=== PATIENT | female | born 1940 | race Caucasian/White ===

== ENCOUNTER 2016-05-31 07:20 | Day surgery (SDC) | payer MEDICARE ==
[~2016-05-31] VITALS: Ht 175.3 cm; Wt 73.0 kg
[~2016-05-31 07:20] MED LIST: AMLO5TAB2 PO; ASPI81TA2 PO; CHOL200025 PO; FISH PO; FOL1 PO; HYDR25TA4 PO; LOSA100T29 PO; VITA-212 PO
[2016-05-31 07:41] VITALS: BP 102/70; PULSE 90; RESP 15; O2SAT 94
[2016-05-31] MEDS ORDERED: 0.9% Sodium Chloride 1,000 ML IV PRN (07:48)
[2016-05-31] MEDS ORDERED: Sodium Chloride LOK Flush 10 mL Syringe IV PRN (07:50)
[2016-05-31] MEDS ORDERED: fentaNYL-PF 50 mCg/mL 2 mL Inj IVPUSH PRN (07:50)
--- NOTE | 2016-05-31 08:26 | PCM.ENDCOL ---
Colonoscopy Date of Service: May 31, 2016 Physician Jose Parisi MD Pre Procedure Diagnosis: Screening personal history of colon polyp Post Procedure Dx & Findings: Polyp hemorrhoids and diverticula Procedure Colonoscopy PROCEDURE IN DETAIL: Prep adequate Withdrawal time 11 minutes After unremarkable rectal examination the Olympus video colonoscope was inserted patient's anal canal and was advanced to cecum. Landmarks were identified including the ileocecal valve and appendiceal orifice. Scope was withdrawn systematically. Visualized colonic mucosa showed healthy shiny mucosa with normal healthy-appearing vasculature. In the sigmoid colon there was a 1 mm polyp which was removed completely using cold forceps. In the sigmoid colon there were several medium size diverticuli. Patient also had isolated diverticuli although up to the ascending colon. In the rectum retroflexion was done which showed hemorrhoids. Anal canal was inspected carefully on the way out and hemorrhoids noted. Impression Polyp 1 status post complete removal Diverticuli Hemorrhoids Personal history of colon polyp Recommendation Repeat colonoscopy 5 years Diverticular diet Presedation Assessment Risks and Benefits Informed consent was obtained from the patient after all risks and benefits including but not limited to drug reaction, infection, pain, bleeding, perforation, as well as alternatives were discussed. Patient monitoring Continuous pulse oximetry, cardiac monitoring, blood pressure monitoring, IV access, and oxygen at 2L per nasal cannula. Periprocedural Fentanyl: Fentanyl 100mcg Incrementally Midazolam: Midazolam 4mg Incrementally Complications There were no periprocedural complications identified. Post Procedure Plan Post Procedure Recommendations 1. Restrict activities today. 2. Resume normal activities in the morning. 3. Resume medications. 4. Patient informed of normal post procedure side effects as bloating, drowsiness, blood streaking in the stool. 5. average risk CRCS. If colon polyps come back as: -Hyperplastic- can repeat colonoscopy in 10 years -Tubular adenoma- repeat colonoscopy in 5 years -Tubulovillous/villous adenoma- repeat colonoscopy in 3 years -If any dysplasia- return to clinic as soon as possible 6. Please don't hesitate to call me with any questions. Jose Parisi MD May 31, 2016 08:26
[2016-05-31 08:32] VITALS: BP 93/60; PULSE 70; RESP 16; O2SAT 93
[2016-05-31 08:42] VITALS: BP 90/59; PULSE 73; RESP 16; O2SAT 95
[2016-05-31 08:46] VITALS: BP 92/63; PULSE 78; RESP 16; O2SAT 96
--- NOTE | 2016-06-01 14:05 | PATH ---
SURGICAL PATHOLOGY Attending Physician:Jose Parisi M.D. CASE STATUS: Signed Out PATIENT NAME: NIECY HAWK PID: [id number] : 1940 DATE COLLECTED:05/31/2016 19:47 SPECIMEN: Colon, Biopsy CLINICAL HISTORY: 1). SIGMOID POLYP FINAL DIAGNOSIS: 1.SIGMOID POLYP: HYPERPLASTIC POLYP. ICD10 CODE K63.5 GROSS DESCRIPTION: The specimen is received in one formalin filled container labeled with the patient's name, sublabeled "sigmoid polyp" and consists of a 0.2 x 0.2 x 0.2 CM portion of tissue which is entirely submitted in one cassette. 05/31/2016 DAC MICRO DESCRIPTION: See diagnosis. ICD-9 CODES: CPT CODES: 1: 23432 Electronically Signed Out Namita Carrillo MD [facility], [place] [address] Technical component performed at [facility], [address] [place] [address] Ave[address], [place], [address]
== END 2016-05-31 23:59 | disposition home or self-care (01) ==
LOC: END 07:20
PROVIDERS: ATTEND Internal Medicine
DX: Z12.11 Encounter for screening for malignant neoplasm of colon (principal); K63.5 Polyp of colon; K57.30 Diverticulosis of large intestine without perforation or abscess without bleeding; K64.8 Other hemorrhoids; Z86.010 Personal history of colon polyps; I10 Essential (primary) hypertension; G43.909 Migraine, unspecified, not intractable, without status migrainosus; Z79.82 Long term (current) use of aspirin
CPT/HCPCS: 45380; 88305; 99153; G0500; J2250; J3010; J7030

== ENCOUNTER 2016-08-25 12:02 | Observation (INO) | payer MEDICARE ==
[2016-08-25] VITALS (8 sets, daily range): BP systolic 112–163; BP diastolic 72–91; PULSE 77–107; RESP 16–18; O2SAT 94–99
[~2016-08-25] VITALS: Ht 175.3 cm; Wt 77.3 kg
--- NOTE | 2016-08-25 12:14 | ED.REPORT ---
HPI-Stroke / CVA Aug 25, 2016 ED Provider: Dr. Martinez 75 y/o female on Aspirin with a hx of HTN and migraines presents to the ED complaining of sudden severe headache about 2 hours ago. Associated sx include weakness in left arm and leg that lasted a few minutes. She states she took two Aspirin prior to arrival for her headache. In the ED, her sx have resolved, except a mild headache. Nursing Notes Stated Complaint: SEVERE HEADACHE/LT SIDE WEAKNESS Chief Complaint: Neuro Symptoms/ Deficits Nursing Notes Reviewed: Yes Allergies: Coded Allergies: No Known Allergies (Verified Allergy, Unknown, 08/25/16) Scheduled Amlodipine (Amlodipine) 5 Mg Tablet 5 MG PO DAILY (Reported) Aspirin-Expunged Drug, Do Not Renew! (Aspirin-Expunged Drug, Do Not Renew!) 81 Mg Tab 81-162 MG PO DAILY (Reported) Cholecalciferol-Expunged Drug, Do Not Renew! (Vitamin D3-Expunged Drug, Do Not Renew!) 2,000 Unit Tablet 2,000 UNIT PO DAILY (Reported) Fish Oil-Expunged Drug, Do Not Renew! (Fish Oil-Expunged Drug, Do Not Renew!) Cap 1 CAP PO DAILY (Reported) Folic Acid-Expunged Drug, Do Not Renew! (Folic Acid-Expunged Drug, Do Not Renew! ) 1 Mg Tablet 1 MG PO DAILY (Reported) Hydrochlorothiazide (Hydrochlorothiazide) 25 Mg Tablet 25 MG PO DAILY Losartan Potassium (Losartan Potassium) 100 Mg Tablet 100 MG PO DAILY Vitamin B Complex (P-Clslxtf-Xtpzdxz B-12) 1 Each Tablet 1 EACH PO DAILY ( Reported) General Time Seen by Provider: 12:15 Chief Complaint Other (headache) Hx Obtained From: Patient Arrived By: Walk-in Time last known well 10:00 Sudden in Onset?: Yes Symptom Duration: 1 - 15 minutes Progression Since Onset: Resolved Location: : Head Quality: Painful Radiation: Does not radiate Severity: Current: Mild Severity: Maximum: Moderate Recent Healthcare: No recent doctor visit Similar Sx Previous: No Risk Factors NIH Stroke Scale Level of Consciousness: Alert and responsive (0) Ask Month & Age: Both questions right (0) Open/Close Eyes/Hand Shuttlecock Assembler: Performs both tasks (0) Horizontal EO Movements: None (0) Visual Chatman: No visual loss (0) Facial Palsy: Normal symmetry (0) Right Arm Motor Drift (10s): No drift 10 sec (0) Left Arm Motor Drift (10s): No drift 10 sec (0) Right Leg Motor Drift (5s): No drift 5 sec (0) Left Leg Motor Drift (5s): No drift 5 sec (0) Limb Ataxia FNF/Heel-Faulkner: No ataxia (0) Sensation (Arms/Legs/Face): No sensory loss (0) Language Aphasia: No aphasia, normal (0) Dysarthria: No dysarthria, normal (0) Extinction/Inattention: No exctinct/inattent (0) NIHSS Score: 0 Time NIHSS Performed: 12:26 Date NIHSS Performed: Aug 25, 2016 Past Medical History Past Medical History Hx of cervical cancer GERD Past Surgical History breast reduction partial hysterectomy right hip replacement Smoking History Never Smoker Social History Alcohol Use: Denies alcohol use Drug Use: Denies drug use Other Social History: Ambulatory Status Independent Review of Systems Neurologic: Reports: Headache, Weakness (left extremities (resolved)) Complete sys rev & neg: except as marked. Physical Exam Initial Vital Signs Vital Signs (First) Date Time Temp Pulse Resp B/P Pulse Ox O2 Delivery O2 Flow Rate FiO2 08/25/16 12:08 36.8 107 18 159/91 99 Room Air Initial VS: Reviewed Abdomen / GI: Soft, Non-tender Extremities: Vascular intact, Neuro intact, No swelling, No tenderness Skin: Warm, Dry, No cyanosis General/Constitutional: Awake, Alert, No acute distress, Cooperative Head / Eyes: Atraumatic, Normocephalic, PERRL, EOMI Neck: Atraumatic, Supple, Full range of motion Respiratory / Chest: Atraumatic, Breath sounds NL, Breath sounds = bilat, No respiratory distress, No rales, No rhonchi, No wheezing Cardiovascular: Heart rate NL, Regular rhythm, Heart sounds NL, No gallop, No murmurs, No rubs Neurologic: Oriented X3, Speech NL, No motor deficits, No sensory deficits, CN II - XII intact, Memory NL Interpretation & Diagnostics PROCEDURE: MRI BRAIN WITHOUT CONTRAST ([id number]) IMPRESSION: Small, sub-5 mm foci of acute ischemia involving the right cerebral hemisphere as detailed above. Right mastoid air cell fluid. Recommend clinical correlation to exclude mastoiditis. Bilateral scattered white matter signal changes, statistically representing chronic microvascular ischemic disease Dictated by: Harshal Peetr M.D. on 08/25/2016 at 15:22 Approved by: Harshal Peter M.D. on 08/25/2016 at 15:27 Lab Results Interpretation Result Diagram: 08/25/16 1232 08/25/16 1232 Test 08/25/16 12:32 08/25/16 12:33 08/25/16 12:42 08/25/16 13:31 White Blood Count 10.3th/mm3 (3.8-10.1) Red Blood Count 4.93mil/mm3 (3.90-5.20) Hemoglobin 14.9g/dL (12.0-15.6) Hematocrit 44.2% (35.0-46.0) Mean Corpuscular Volume 89.7fL (81-100) Mean Corpuscular Hemoglobin 30.2pg (27.0-35.0) Mean Corpuscular Hemoglobin Concent 33.7% (32.0-37.0) Red Cell Distribution Width 14.0% (12.3-15.4) Platelet Count 300bil/L (150-400) Neutrophils (%) (Auto) 71.8% (40-74) Lymphocytes (%) (Auto) 19.3% (14-46) Monocytes (%) (Auto) 7.3% (4-12) Eosinophils (%) (Auto) 1.0% (0-5) Basophils (%) (Auto) 0.2% (0-3) Prothrombin Time 9.6sec (8.1-12.5) Prothromb Time International Ratio 0.90ratio Activated Partial Thromboplast Time 23.8sec (22.8-33.0) Sodium Level 139mEq/L (134-144) Potassium Level 4.4mEq/L (3.5-5.2) Chloride Level 102mEq/L (97-108) Carbon Dioxide Level 19mmol/L (18-29) Blood Urea Nitrogen 17mg/dL (8-27) Creatinine 0.85mg/dL (0.57-1.00) Estimat Glomerular Filtration Rate 94mL/min (>59) Glucose Level 103mg/dL (60-99) Calcium Level 10.0mg/dL (8.5-10.1) Total Bilirubin 0.3mg/dL (0.0-1.2) Aspartate Amino Transf (AST/SGOT) 18U/L (0-50) Alanine Aminotransferase (ALT/SGPT) 18U/L (0-32) Alkaline Phosphatase 100U/L (25-165) Troponin T < 0.010ug/L (0.0-0.011) Total Protein 6.9g/dL (6.4-8.4) Albumin 4.2g/dL (3.4-5.0) Hold Sanchez Top Tube Received (Received) Triglycerides Level 241mg/dL (0-149) Cholesterol Level 285mg/dL (100-199) LDL Cholesterol, Calculated 162.800mg/dL (0-99) VLDL Cholesterol 48.200mg/dL HDL Cholesterol 74mg/dL (>39) Cholesterol/HDL Ratio 3.85 (0.0-4.4) Urine Color Straw (YELLOW) Urine Appearance Hazy (CLEAR,HAZY) Urine pH 6.0 (5.0-8.0) Urine Specific [place] 1.005 (1.003-1.035) Urine Protein Negativemg/dL (NEG,TRACE) Urine Glucose (UA) Negativemg/dL (NEGATIVE) Urine Ketones Negativemg/dL (NEGATIVE) Urine Occult Blood Negative (NEGATIVE) Urine Nitrite Negative (NEGATIVE) Urine Bilirubin Negative (NEGATIVE) Urine Urobilinogen Normalmg/dL (NORMAL) Urine Leukocyte Esterase Negative (NEGATIVE) Urine RBC 0-2/hpf (0-2) Urine WBC 0-5/hpf (0-5) Urine Epithelial Cells Occasional/hpf (NONE-MOD) Urine Crystals None seen (NONE SEEN) Urine Bacteria Few/hpf (NONE-FEW) Urine Hyaline Casts None/lpf (NONE) Urine Granular Casts None seen (NONE SEEN) Urine Waxy Casts None seen (NONE SEEN) Urine Red Blood Cell Casts None seen (NONE SEEN) Urine White Blood Cell Casts None seen (NONE SEEN) Urine Mucus None seen (None Seen) Urine Trichomonas None seen (NONE SEEN) Urine Yeast None (NONE SEEN) Urinalysis Comment None Urine Culture Reflexed Not indicated ECG Interpretation ECG Interpretation: Normal sinus rhtyhm. Rate 85. No STT changes No changes from previous on 05/28/15 Time: 12:55 Interpreted by: ED physician CT Head Interpretation IMPRESSION: No acute intracranial abnormality. Findings telephoned to Dr. Martinez in the emergency department 1228 hours 08/25/16 This study fulfills neurological imaging criteria for inclusion or exclusion of acute stroke therapies based on available published neurological guidelines. Dictated by: Harshal Peter M.D. on 08/25/2016 at 12:26 Approved by: Harshal Peter M.D. on 08/25/2016 at 12:29 Study: Head CT no contrast Interpretation / Wet Read by: Interpret - Radiologist Re-Eval/Medical Decision Med Decision/Clinical Course 35-year-old female history of hypertension presenting with headache and left upper extremity and left lower extremity weakness resolved prior to arrival. CT confirms a 5 mm acute ischemic stroke right frontal region. Her symptoms resolved. Code stroke was called initially and her symptoms resolved immediately prior to CT. There was no hemorrhage. Her workup was negative other than an MRI. Patient will be admitted for stroke workup. Neurologist was consulted who agreed with plan for admission and stroke workup. Patient took 324 mg of aspirin prior to arrival. Re-Evaluation/Progress #1: Time of Eval: 14:21 Patient Status: Condition resolved, Complete relief Re-Evaluation/Progress Note: Rechecked pt. Discussed lab results, imaging results, diagnosis and plan to discharge after an MRI. Pt understands and agrees with the plan. F/U instructions and RTER warning given. All questions addressed. Re-Evaluation/Progress #2: Time of Eval: 14:37 Re-Evaluation/Progress Note: Rechecked pt. Discussed MRI results, diagnosis and plan to admit. All questions answered. Consultation #1: Referral / Consult Name: Rob Oneill MD Consulted With: Neurology Call Returned at: 16:40 Navy Seal: Agrees with eval, Agrees with plan Note: Dr. Oneill agrees with admission for stroke workup Consultation #2: Referral / Consult Name: Cameron Goel DO Consulted With: Hospitalist Call Returned at: 17:44 Navy Seal: Will see patient, Agrees with eval, Agrees with plan, Accepts admit Counseled Regarding: Diagnosis, Lab results, Need for admission Patient Discharge & Departure Impression: Primary Impression: Stroke Disposition: ADMITTED TO HOSPITAL Discharge Condition All VS Reviewed: Yes Referrals: Yamel James DO (PCP) Crit Care Except Billable Proc Time Spent: 30-74 minutes (35 minutes) Services Performed: Patient management by me, Time spent at bedside, Reviewing test results, Reviewing imaging, Discussing patient care, Documentation in record, Time with fam/surrogate Scribe Attestation Portions of this note were transcribed by Denys Montoya. I, , personally performed the history, physical exam and medical decision- making;I reviewed and confirmed the accuracy of the information in the transcribed note. Signed by Douglas Young. 08/25/16 17:45 copies to: Yamel James Ben M MD Aug 25, 2016 12:14 Denys Montoya Aug 25, 2016 12:32
--- NOTE | 2016-08-25 12:32 | DRSVH ---
PROCEDURE: CT BRAIN (TPA) ([id number]) INDICATIONS: Stroke TECHNIQUE: Noncontrast 4.5 mm thick angled axial sections acquired from the foramen magnum to the vertex, with c oronal reformats. COMPARISON: None. FINDINGS: Image quality: Excellent. CSF spaces: Basal cisterns are patent. No extra-axial fluid collections. The ventricles are symmet everett in size and shape. Brain: No intracranial bleeds or masses. There is cerebral volume loss for age, with resultant vent ricular and sulcal prominence. There are periventricular and deep white matter chronic small vessel ischemic changes. There is intracranial internal carotid artery atherosclerosis. Skull and face: Calvarium and visualized facial bones appear intact, without suspicious lesions. Sinuses: Visualized sinuses and mastoids are clear. IMPRESSION: No acute intracranial abnormality. Findings telephoned to Dr. Martinez in the emerge ncy department 1228 hours 08/25/16 This study fulfills neurological imaging criteria for inclusion or exclusion of acute stroke therapie s based on available published neurological guidelines. Dictated by: Harshal Peter M.D. on 08/25/2016 at 12:26 Approved by: Harshal Peter M.D. on 08/25/2016 at 12:29
[2016-08-25 12:39] LABS: BASOPHILS % (AUTO) 0.2 % (0-3); MONOCYTES % (AUTO) 7.3 % (4-12); Mean Corpuscular Hemoglobin 30.2 pg (27.0-35.0); Mean Corpuscular Volume 89.7 fL (81-100); NEUTROPHILS % (AUTO) 71.8 % (40-74); Platelet Count 300 bil/L (150-400)
[2016-08-25 12:55] LABS: INR 0.9 ratio
[2016-08-25 13:18] LABS: TROPONIN T < 0.010 ug/L (0.0-0.011)
--- NOTE | 2016-08-25 13:37 | NUR ---
Evaluation completed. Please go to "Notes" then click on "Assessments and Notes" (bottom left corner of screen). Then select appropriate discipline tab on top of screen.
[2016-08-25 14:31] LABS: APPEARANCE,URINE HAZY (CLEAR,HAZY); COLOR,URINE STRAW (YELLOW)
[2016-08-25 14:32] LABS: OCCULT BLOOD,URINE NEGATIVE (NEGATIVE); UROBILINOGEN,URINE NORMAL (NORMAL)
--- NOTE | 2016-08-25 15:29 | DRSVH ---
PROCEDURE: MRI BRAIN WITHOUT CONTRAST ([id number]) INDICATIONS: L-sided weakness this morning, now resolve TECHNIQUE: Non-contrast axial T1 spin echo, axial T2 fast spin echo, sagittal and axial FLAIR, coronal T2 fast s pin echo, axial gradient echo, axial diffusion and ADC through the brain. COMPARISON: None. FINDINGS: Image quality: Excellent. CSF spaces: Ventricles appear symmetric in size and shape. Basal cisterns are patent. No extra-axi al fluid collections. Brain: No intracranial bleeds or mass effects. There is cerebral volume loss for age. There are pe riventricular and deep white matter chronic small vessel ischemic changes. Brainstem appears normal. Diffusion-weighted images show small less than 5 mm foci of acute ischemia involving the anterior r ight frontal lobe on image 67 series 14, and in the right parietal white matter image 66 series 14. No chronic ischemic insults. Normal intravascular flow voids are present. Skull and face: Calvarial bone marrow is normal in signal. Orbits are normal. Sinuses: There is right mastoid air cell fluid IMPRESSION: Small, sub-5 mm foci of acute ischemia involving the right cerebral hemisphere as detailed above. Right mastoid air cell fluid. Recommend clinical correlation to exclude mastoiditis. Bilateral scattered white matter signal changes, statistically representing chronic microvascular isc hemic disease Dictated by: Harshal Peter M.D. on 08/25/2016 at 15:22 Approved by: Harshal Peter M.D. on 08/25/2016 at 15:27
[2016-08-25] MEDS ORDERED: Alum-Mag Hydrox-Simeth 30 mL Suspension PO PRN (17:35)
[2016-08-25] MEDS ORDERED: Polyethylene Glycol (PEG) 17 Gm Powder PO PRN (17:35)
[2016-08-25] MEDS ORDERED: Labetalol 5 mg/mL 20 mL Inj IVPUSH PRN (17:35)
[2016-08-25] MEDS ORDERED: Ondansetron 2 mg/mL 2 mL Inj IVPUSH PRN (17:35)
--- NOTE | 2016-08-25 18:21 | PCM.HPMED ---
Subjective Date of Service Aug 25, 2016 Primary Provider: Admitting Physician: Cameron Goel DO Primary Care Physician: Yamel James DO Attending Physician: Cameron Goel DO Chief Complaint: Transient sided tingling and weakness History of Present Illness: Patient is a 75-year-old female in overall excellent physical health past medical history significant only for hypertension presenting to the emergency department following an episode of sudden and severe headache also associated with right arm tingling and mild weakness, which to a lesser degree involve the leg, lasting only a few minutes and then resolving. She initially took only 2 aspirin for this condition was not going to think much of it but then following review of the Internet and discussion with her decided it would be better to seek medical evaluation. On presentation to the emergency department condition was entirely resolved and she was very reluctant to consider staying for further evaluation. In response emergency room physician ordered an MRI study to evaluate for any evidence of stroke and indeed found a right-sided parietal stroke very consistent with patient's previous symptoms. As such she was convinced to stay although she was feeling completely in her normal state of health at the time she was transferred to hospital floor. Patient is very pleasant during my evaluation confirms history provided above. Currently complaining of no symptoms she is very active exercises proximally 5 days per week has no other symptoms in her day-to-day life that she can note to complain about. She experienced intermittent palpitations on occasion but these resolve spontaneously and seconds, she takes aspirin fish oil and other supplements for her vascular health but aside from hypertension has no other medical conditions of which to speak. Review of Systems: A 10 point review of systems is conducted and entirely negative excepting pertinent positives and negatives included in above history of present illness Allergies Coded Allergies: No Known Allergies (Verified Allergy, Unknown, 08/25/16) Home Medications Amlodipine (Amlodipine) 5 Mg Tablet 5 MG PO DAILY (Reported) Aspirin-Expunged Drug, Do Not Renew! (Aspirin-Expunged Drug, Do Not Renew!) 81 Mg Tab 81-162 MG PO DAILY (Reported) Cholecalciferol-Expunged Drug, Do Not Renew! (Vitamin D3-Expunged Drug, Do Not Renew!) 2,000 Unit Tablet 2,000 UNIT PO DAILY (Reported) Fish Oil-Expunged Drug, Do Not Renew! (Fish Oil-Expunged Drug, Do Not Renew!) Cap 1 CAP PO DAILY (Reported) Folic Acid-Expunged Drug, Do Not Renew! (Folic Acid-Expunged Drug, Do Not Renew! ) 1 Mg Tablet 1 MG PO DAILY (Reported) Hydrochlorothiazide (Hydrochlorothiazide) 25 Mg Tablet 25 MG PO DAILY Losartan Potassium (Losartan Potassium) 100 Mg Tablet 100 MG PO DAILY Vitamin B Complex (E-Xbhfydy-Soxidlo B-12) 1 Each Tablet 1 EACH PO DAILY ( Reported) PMH Hx of cervical cancer GERD Surgical History breast reduction partial hysterectomy right hip replacement Family History Patient denies any significant family history, aside from cardiovascular disease. Social History Hx Alcohol Use: No (NONE SINCE 2008; HX OF ALCOHOLISM) Hx Substance Use: Yes (marijuana edible once in awhile) Smoking Status: Never Smoker Exam Vital Signs Vital Sign - Last Date Time Temp Pulse Resp B/P Pulse Ox O2 Delivery O2 Flow Rate FiO2 08/25/16 18:08 95 08/25/16 18:04 36.4 16 163/91 97 Room Air General: Alert, Oriented X3, Cooperative, No Acute Distress Eyes: PERRLA, EOMI, Other (visual macdonald intact) Mouth: Mucous Membr Moist/[place] Neck: Supple, Other (no carotid bruits) Chest & Lungs: Clear to auscultation & percussion Cardiovascular: Regular Rate/Rhythm, No Murmurs/Rubs/Gallops Abdomen: Non-tender, Non-distended Extremities: No cyanosis/clubbing/edma bilat Neurological: Grossly Neurologically Intact, Cranial Nerves 2-12 Intact, Strength Normal 4/4 ext, Sensation Intact, Cerebellar Function nl Finger-Nose, Cerebellar Function nl Heel-Faulkner, Reflexes Normal Lab and Diagnostics Result Diagram: 08/25/16 1232 08/25/16 1232 Assessment & Plan This 75-year-old female in excellent health past medical history significant only for hypertension resulting to emergency room for transient left-sided numbness and tingling and found to have right-sided parietal stroke. 1. Right-sided parietal stroke - Patient be admitted in accordance with stroke protocol - Pt placed on continuous telemetry monitoring - PTOT speech of a consulted and will evaluate - Echocardiogram, carotid Doppler are currently ordered and pending - Neurologist Dr. Oneill has also agreed to see patient and will make further recommendations accordingly. - Progressive hypertension be allowed with labetalol prescribed as needed for excessive elevations. 2. Hypertension - As noted above progressive hypertension will be allowed at this time appearance needed only for blood pressures greater than 180 systolic Pain Evaluation: Adequate Pain Control GI Prophylaxis: Not indicated VTE Mechanical Devices: Intermittant Pneumatic CD Resuscitation Status: CPR: Attempt Resuscitation Time spent 55 minutes Cameron Goel DO Aug 25, 2016 18:20
--- NOTE | 2016-08-25 19:13 | NUR ---
Arrived To [facility]: Patient arrived to [facility] from the ER at 181. Patient is up ambulating in her room. She was oriented to her room , caregivers and call light. She received her carotid Doppler study as soon as coming to her room and MD consulted with her and explained her hospitalization to her at length. Report was given to the oncoming shift.
[2016-08-25] MEDS ORDERED: OMEG-38 PO (20:00)
[2016-08-25] MEDS ORDERED: ASPI-973 PO (20:00)
[2016-08-25] MEDS ORDERED: CHOL200047 PO (20:00)
--- NOTE | 2016-08-25 20:27 | NUR ---
Admit Patient's admit assessment completed. Patient is alert and oriented, reports that numbness in left arm has resolved. Oriented to room, call light, plan of care, intentional rounding. White board updated. No neuro deficits noted. Telemetry connected, IV is patent.
[2016-08-26] VITALS (7 sets, daily range): BP systolic 109–153; BP diastolic 63–83; PULSE 68–84; RESP 16; O2SAT 94–96
--- NOTE | 2016-08-26 03:55 | NUR ---
Uneventful night Patient has been sleeping most of the night. Neuro checks normal with no deficits. Patient has remained alert and oriented, independent in room. Vital signs stable. Calm and cooperative, intentional rounding in place.
--- NOTE | 2016-08-26 11:07 | DRSVH ---
PROCEDURE: US BILATERAL DUPLEX DOPPLER IMAGING OF THE CAROTIDS ([id number]) INDICATIONS: R/O Carotid Disease if no MRA or CTA Neck TECHNIQUE: Color and pulse Doppler interrogation was performed of both carotid systems, with image documentation and velocity measurements. COMPARISON: None. FINDINGS: All stenosis calculations are based on NASCET criteria. Right side: Brachial blood pressure: 163 or 91 mm Hg. Common Carotid Artery(Distal) PSV: 67.10 cm/s Internal Carotid Artery PSV- Proximal: 65.70 cm/s Mid-lon.70 cm/s Distal: 111.10 cm/s EDV - Proximal: 13.70 cm/s Mid-lon.40 cm/s Distal: 26.60 cm/s External Carotid Artery(Proximal) PSV: 99.80 cm/s ICA/CCA PSV ratio: 3.4 Fair scale imaging description: Moderate scattered plaque. Percent internal carotid artery stenosis: 50-69% stenosis. Vertebral artery: Flow direction is antegrade. Left side: Brachial blood pressure: Not obtained. Common Carotid Artery(Distal) PSV: 56.90 cm/s Internal Carotid Artery PSV - Proximal: 58.90 cm/s Mid-lon.90 cm/s Distal: 99.80 cm/s EDV - Proximal: 14.70 cm/s Mid-lon.60 cm/s Distal: 28.20 cm/s External Carotid Artery(Proximal) PSV: 78.10 cm/s ICA/CCA PSV ratio: 1.8 Fair scale imaging description: Mild scattered plaque. Percent internal carotid artery stenosis: Less than 50%. Vertebral artery: Flow direction is antegrade. IMPRESSION: 1. 50-69% right internal carotid artery stenosis. 2. Less than 50% left internal carotid artery stenosis. Dictated by: Babak OLIVA Interpreted: Rajan Zelaya MD on 08/26/2016 at 9:04 Approved by: Rajan Zelaya M.D. on 08/26/2016 at 11:04
--- NOTE | 2016-08-26 13:15 | NUR ---
Case Management: B[employer] and Medicare Part D pamphlet delivered and explained to pt. Signed original placed in chart and copy left at bedside. Tika Swanson RN
--- NOTE | 2016-08-26 13:58 | DRSVH ---
[facility] [address] [place] [address] Echocardiogram Report Name: NIECY HAWK LStudy Date : 08/26/2016 Height: 69 in Hospital Exam Location: [facility] Weight: 170 lb Gender: Female BSA: 1.9 m2 : 1940 Age: 75 yrs BP: 137/ 83 mmHg Reason For Study: CVA Ordering Physician: HOSPITALIST [facility] Performed By: Tristen Erwin Referring Physician: SARAH MUELLER Interpretation Summary The left ventricle is normal in size. The ejection fraction is estimated to be 65-70%. There is no LV thrombus. The right ventricle is normal in size and function. The interatrial septum is intact with no evidence for an atrial septal defect. Injection of contrast documented no interatrial shunt. The ascending aorta is mildly enlarged. No significant valvular pathology seen. Mild atherosclerotic plaque(s) in the aortic arch. The patient was in normal sinus rhythm during the exam. Procedure: A two-dimensional transthoracic echocardiogram with color flow and Doppler was performed. The study quality was technically adequate. There is no prior echocardiogram noted for this patient. A saline contrast injection was performed to assess for cardiac shunting. The patient was in normal sinus rhythm during the exam. Left Ventricle: The left ventricle is normal in size. Proximal septal thickening is noted. There is no echo evidence for significant left ventricular outflow tract obstruction. There is no thrombus. The ejection fraction is estimated to be 65-70%. There are no focal wall motion abnormalities. Spectral Doppler of the mitral valve is reversed, with an E/A wave ratio < 1.0. Right Ventricle: The right ventricle is normal in size and function. Atria: Both atria are normal in size. The interatrial septum is intact with no evidence for an atrial septal defect. Injection of contrast documented no interatrial shunt. Mitral Valve: There is mild mitral annular calcification. The mitral valve chordae are thickened and/or calcified. There is trace mitral regurgitation. Aortic Valve: The aortic valve is trileaflet. The aortic valve is mildly calcified. The aortic valve opens well. There is discrete nodular thickening of the right coronary cusp. There is no aortic valve stenosis. There is trace aortic regurgitation. Tricuspid Valve: Tricuspid leaflets are thickened. There is trace tricuspid regurgitation. The right ventricular systolic pressure is estimated at 27 mmHg assuming a right atrial pressure of 3 mm Hg. Pulmonic Valve: The pulmonic valve is not well seen, but is grossly normal. There is trace pulmonic regurgitation. Great Vessels: The aortic root is normal size. The ascending aorta is mildly enlarged. Mild atherosclerotic plaque(s) in the aortic arch. The pulmonary is not well visualized. The IVC is of normal diameter and collapses greater than 50% with a sniff. This suggests a low right atrial pressure of 3 mm Hg. Pericardium/ Pleura This is unchanged compared to the previous study. There is no pleural effusion. MMode/2D Measurements & Calculations LVIDd: 4.7 cm RA long axis LVOT diam: 2.2 cm LVIDs: 3.5 cm LA A2 area: 18.4 cm AoV Opening FS: 26.5 % LA A4 area: 16.5 cm RA area IVSd: 0.88 cm LA length (vol) Ao root diam LVPWd: 0.80 cm : 11.0 cm LA vol: 58.6 ml RA vol asc Aorta Diam LA vol index : 26.2 ml RA Ao Arch Diam (Prox : 13.6 mm2 Trans): 3.0 cm IVC diam: 1.9 cm LV smith. diameter/BSA LV sys. diameter/BSA RVD1 (basal) (cm/m^2): 2.4 (cm/m^2): 1.8 Doppler Measurements & Calculations Ao V2 max MV E max anders MV E/A: 0.92 TR max anders : 149.4 cm/sec : 64.3 cm/sec MV A dur : 244.4 cm/sec Ao max PG MV A max anders : 0.12 sec TR max PG : 8.9 mmHg : 69.5 cm/sec : 23.9 mmHg Ao mean PG MV P1/2t: 69.8 msec PA V2 max : 70.0 cm/sec LVOT Max Anders PA mean PG : 99.4 cm/sec : 1.0 mmHg JOEY(I,D): 2.7 cm sev ratio MV dec time MV P1/2t max anders Ao V2 mean LV V1 max PG : 0.24 sec : 95.6 cm/sec MVA(P1/2t): 3.2 cm2 Ao V2 VTI LV V1 VTI: 23.3 cm JOEY(V,D): 2.4 cm2 PA V2 mean JOEY indexed to BSA : 47.0 cm/sec (cm^2/m^2): 1.4 PA pr(Accel) : 44.1 mmHg Reading Physician:GIANLUCA
--- NOTE | 2016-08-26 14:10 | NUR ---
Social Work: Attempted Initial Assessment D: EMR reviewed. Pt is a 75 y/o female admitted for CVA per H&P. SW attempted to meet with pt but pt was not in room - receiving neurology consult/evaluation. Pt's insurance is [employer] and PCP is Yamel James DO. Pt's spouse, Wellington Fernando is listed as NOK ([phone]). Per Per MD in AM multi-disciplinary rounds, pt received echo this morning and will received neurology consult today. PT/OT recommend that pt return home. Pt's RN stated that pt is doing well, up and ambulating independently, and is eager to go home. MD stated that if pt's results are negative, pt will likely discharge today. A: TBD P: SW will continue to attempt to conduct initial assessment when pt arrives back to room. MEGHAN Hayden
--- NOTE | 2016-08-26 15:08 | PCM.PNMED ---
Subjective Date of Service Aug 26, 2016 Subjective Seen and evaluated at bedside No symptoms, no complaints at this time No recurrence since initial event, resolved by time of presentation to ER,. Exam Vital Signs Vital Sign - Last Date Time Temp Pulse Resp B/P Pulse Ox O2 Delivery O2 Flow Rate FiO2 08/26/16 13:06 36.5 83 16 119/76 94 Room Air Intake and Output 08/25/16 08/25/16 08/26/16 Cumulative From/Thru 15:00 23:00 07:00 08/25/16 12:08 - 08/26/16 06:10 Intake Total 600 ml 600 ml Output Total 400 ml 400 ml Balance 200 ml 200 ml Intake Oral 600 ml 600 ml Output Urine Total 400 ml 400 ml Exam General: Alert, Oriented X3, Cooperative, No Acute Distress Eyes: PERRLA, EOMI, Visual macdonald intact Mouth: Mucous Membr Moist/[place] Neck: Supple, No carotid bruits appreciated Chest & Lungs: Clear to auscultation & percussion Cardiovascular: Regular Rate/Rhythm, No Murmurs/Rubs/Gallops Abdomen: Non-tender, Non-distended Extremities: No cyanosis/clubbing/edma bilat Neurological: Grossly Neurologically Intact, Cranial Nerves 2-12 Intact, Strength Normal 4/4 ext, Sensation Intact, Cerebellar Function nl Finger-Nose, Cerebellar Function nl Heel-Faulkner, Reflexes Normal IVs and Medications Medications Reviewed: Medications were reviewed in detail Lab and Diagnostics Result Diagram: 08/25/16 1232 08/25/16 1232 Assessment & Plan This 75-year-old female in excellent health past medical history significant only for hypertension resulting to emergency room for transient left-sided numbness and tingling and found to have right-sided parietal stroke. 1. Right-sided parietal stroke - Patient admitted in accordance with stroke protocol - Pt placed on continuous telemetry monitoring without noted event or abnormalities in heart rhytm - PTOT speech of a consulted and will evaluate, cleared for home discharge - Echocardiogram essential normal , carotid Doppler demonstrated stenosis on Rt IC of 50-69%. May consider with neurology obtaining CT angio of neck to better clarify. - Neurologist to evaluate this evening - PT's BP wnl overnight and this morning - Plan to likely increase antiplatlete coverage and titrate stain dosage, pending neurology recs for specific medications and dosages. 2. Hypertension - As noted above has not been an issue over night - PRNs avaible for excessive elevation. Hopeful DC this evening with Neurology clearance, if not in AM should further studies be recommended and remain pending. Pain Evaluation: Adequate Pain Control GI Prophylaxis: Not indicated VTE Mechanical Devices: Intermittant Pneumatic CD Resuscitation Status: CPR: Attempt Resuscitation Time spent 25 minutes Cameron Goel DO Aug 26, 2016 15:08
--- NOTE | 2016-08-26 15:49 | NUR ---
Activity: Patient has had an uneventful day. She is awaiting a neuro consult before her discharge tonight. Patient had and Echocardiogram and a Brain angio CT today.
[2016-08-26] MEDS ORDERED: OMEG-101 PO (16:00)
[2016-08-26] MEDS ORDERED: FOLI1TAB18 PO (16:00)
--- NOTE | 2016-08-26 16:28 | DRSVH ---
PROCEDURE: CT ANGIO HEAD AND NECK (P) INDICATIONS: Stroke/TIA TECHNIQUE: Pre-contrast 4.5 mm thick sections acquired from the foramen magnum to the vertex. After the adminis tration of intravenous contrast, 1 mm thick sections acquired from the aortic arch through the [place]. Post-contrast 4.5 mm thick sections then re-acquired from the foramen magnum to the vert ex. 3-dimensional nkpsocu-ftcoyvnce-apdjphuujk (MIP) and/or volume rendering reformats were acquired of the central intracranial vasculature and neck separately. For radiation dose reduction, the foll owing was used: automated exposure control, adjustment of mA and/or kV according to patient size. COMPARISON: [facility], MR, MR BRAIN WO CON, 08/25/2016, 14:38. FINDINGS: Image quality: Excellent. BRAIN: CSF spaces: Ventricles are normal in size and shape. Basal cisterns are patent. No extra-axial flu id collections. Brain: No midline shift. No intracranial bleeds or masses. Fair-white matter interface appears int act. Skull and face: Calvarium and facial bones appear intact, without suspicious lesions. Orbits appear normal. Sinuses: Sinuses and mastoids are clear. HEAD CT ANGIOGRAPHY: Anterior circulation: Intracranial internal carotid arteries are normal in flow. Scattered atheroscl erotic calcifications noted in the cavernous and supraclinoid segments of the internal carotid arteri es bilaterally which cause mild stenoses. The flow within the paired anterior cerebral arteries is no rmal and symmetric. The flow within the middle cerebral arteries is normal and symmetric. The anter ior communicating artery is seen. No aneurysms are seen. Posterior circulation: Visualized portions of the vertebral arteries demonstrate normal caliber, and join to form a normal appearing basilar artery. Flow within the posterior cerebral arteries is norm al and symmetric. No aneurysms are seen. NECK CT ANGIOGRAPHY: Carotid system: The great vessels demonstrate a conventional anatomy as they arise from the aortic a rch. The origins of the common carotid arteries appear patent. The common carotid arteries demonstr ate normal caliber and courses. Atherosclerotic calcification noted in the origin of the right international account executive al carotid artery which causes high grade, approximately 80-90% stenosis of the vessel. After sclerot ic calcification noted in the origin of the left internal carotid artery which causes less than 50% s tenosis. Posterior circulation: The origins of the vertebral arteries both appear widely patent. The more tillman perior extracranial portions of both vertebral arteries also demonstrate normal courses and calibers. They join to form a normal appearing basilar artery. Soft tissues: Visualized neck soft tissues demonstrate no suspicious abnormalities. Multiple hypoatt enuating nodules noted in the thyroid gland. Bones: Spine degenerative disc disease and facet arthropathy. No suspicious bony lesions. Visualize d cervical spine appears normally aligned. IMPRESSION: 1. No acute intracranial disease process. Small lacunar infarcts identified by prior MRI obtained 08/06 03/[address] are [address] identified by CT imaging. 2. No intracranial hemorrhage. 3. 80-90% stenosis of the origin of the right internal carotid artery. 4. Less than 50% stenosis of the origin of the left internal carotid artery. 5. Mild, multifocal atherosclerotic stenoses involving the cavernous and supraclinoid segments of the intracranial internal carotid arteries bilaterally. 6. Vertebral arteries and basilar artery are fully patent. 7. Multinodular thyroid gland. Recommend thyroid ultrasound for definitive characterization. Dictated by: Estela Juárez MD, PhD on 08/26/2016 at 16:18 Approved by: Estela Juárez MD, PhD on 08/26/2016 at 16:26
--- NOTE | 2016-08-26 18:29 | PCM.DC.MED ---
Discharge Summary Date of Service Aug 26, 2016 Dates of Hospitalization Date of Hospital Admission Aug 25, 2016 at 17:05 Date of Discharge: Aug 26, 2016 Providers: Admitting Physician: Cameron Goel DO Primary Care Physician: Yamel James DO Attending Physician: Cameron Goel DO Diagnosis at Time of Discharge Diagnosis at Time of Discharge 1. Acute RT Parietal stroke 2. Hypertension 3. Rt Internal carotid stenosis Consultations Neurology - Dr. Oneill Procedures XRay, CTs & MRIs PROCEDURE: CT ANGIO HEAD AND NECK (P) INDICATIONS: Stroke/TIA IMPRESSION: 1. No acute intracranial disease process. Small lacunar infarcts identified by prior MRI obtained 08/25/[address] are not identified by CT imaging. 2. No intracranial hemorrhage. 3. 80-90% stenosis of the origin of the right internal carotid artery. 4. Less than 50% stenosis of the origin of the left internal carotid artery. 5. Mild, multifocal atherosclerotic stenoses involving the cavernous and supraclinoid segments of the intracranial internal carotid arteries bilaterally. 6. Vertebral arteries and basilar artery are fully patent. 7. Multinodular thyroid gland. Recommend thyroid ultrasound for definitive characterization. PROCEDURE: MRI BRAIN WITHOUT CONTRAST ([id number]) INDICATIONS: L-sided weakness this morning, now resolve TECHNIQUE: Non-contrast axial T1 spin echo, axial T2 fast spin echo, sagittal and axial FLAIR, coronal T2 fast spin echo, axial gradient echo, axial diffusion and ADC through the brain. COMPARISON: None. FINDINGS: Image quality: Excellent. CSF spaces: Ventricles appear symmetric in size and shape. Basal cisterns are patent. No extra-axial fluid collections. Brain: No intracranial bleeds or mass effects. There is cerebral volume loss for age. There are periventricular and deep white matter chronic small vessel ischemic changes. Brainstem appears normal. Diffusion-weighted images show small less than 5 mm foci of acute ischemia involving the anterior right frontal lobe on image 67 series 14, and in the right parietal white matter image 66 series 14. No chronic ischemic insults. Normal intravascular flow voids are present. Skull and face: Calvarial bone marrow is normal in signal. Orbits are normal. Sinuses: There is right mastoid air cell fluid IMPRESSION: Small, sub-5 mm foci of acute ischemia involving the right cerebral hemisphere as detailed above. Right mastoid air cell fluid. Recommend clinical correlation to exclude mastoiditis. Bilateral scattered white matter signal changes, statistically representing chronic microvascular ischemic disease Brief History Patient is a 75-year-old female in overall excellent physical health past medical history significant only for hypertension presenting to the emergency department following an episode of sudden and severe headache also associated with right arm tingling and mild weakness, which to a lesser degree involve the leg, lasting only a few minutes and then resolving. She initially took only 2 aspirin for this condition was not going to think much of it but then following review of the Internet and discussion with her decided it would be better to seek medical evaluation. On presentation to the emergency department condition was entirely resolved and she was very reluctant to consider staying for further evaluation. In response emergency room physician ordered an MRI study to evaluate for any evidence of stroke and indeed found a right-sided parietal stroke very consistent with patient's previous symptoms. As such she was convinced to stay although she was feeling completely in her normal state of health at the time she was transferred to hospital floor. Patient is very pleasant during my evaluation confirms history provided above. Currently complaining of no symptoms she is very active exercises proximally 5 days per week has no other symptoms in her day-to-day life that she can note to complain about. She experienced intermittent palpitations on occasion but these resolve spontaneously and seconds, she takes aspirin fish oil and other supplements for her vascular health but aside from hypertension has no other medical conditions of which to speak. Hospital Course 1. Right-sided parietal stroke - Patient admitted in accordance with stroke protocol - Pt placed on continuous telemetry monitoring without noted event or abnormalities in heart rhytm - PTOT speech of a consulted and will evaluate, cleared for home discharge - Echocardiogram essential normal , carotid Doppler demonstrated stenosis on Rt IC of 50-69%. May consider with neurology obtaining CT angio of neck to better clarify. - Neurologist to evaluate this evening - PT's BP wnl overnight and this morning FU CT angio of neck demonstrated more significant occlusion of RT carotid, actually possibly 90%. This likley represents the source of patient's CVA. Recemendation is prompt FU within 2 weeks with vascular surgeon in addition to medical MGMT with BP goal of <140/90. Medication changes including: Continue ASA 81mg Start Plavix 75mg Start max dose Atorvastatin 80mg HS (consider taper if not tolerated) 2. Hypertension - As noted above has not been an issue over night - BP goals as listed above. 3. Mastoiditis: Incidental finding: - Pt has had symptoms of ear pain/popping. - May consider further in out patient setting, not addressed acutely. Exam Vital Signs (Last) Date Time Temp Pulse Resp B/P Pulse Ox O2 Delivery O2 Flow Rate FiO2 08/26/16 16:55 36.6 76 16 153/81 95 Room Air Exam General: Alert, Oriented X3, Cooperative, No Acute Distress Eyes: PERRLA, EOMI, Visual macdonald intact Mouth: Mucous Membr Moist/[place] Neck: Supple, No carotid bruits appreciated Chest & Lungs: Clear to auscultation & percussion Cardiovascular: Regular Rate/Rhythm, No Murmurs/Rubs/Gallops Abdomen: Non-tender, Non-distended Extremities: No cyanosis/clubbing/edema bilat Neurological: Grossly Neurologically Intact, Cranial Nerves 2-12 Intact, Strength Normal 4/4 ext, Sensation Intact, Cerebellar Function nl Finger-Nose, Cerebellar Function nl Heel-Faulkner, Reflexes Normal Test 08/25/16 12:32 08/25/16 12:33 08/25/16 12:42 08/25/16 13:31 White Blood Count 10.3th/mm3 (3.8-10.1) Red Blood Count 4.93mil/mm3 (3.90-5.20) Hemoglobin 14.9g/dL (12.0-15.6) Hematocrit 44.2% (35.0-46.0) Mean Corpuscular Volume 89.7fL (81-100) Mean Corpuscular Hemoglobin 30.2pg (27.0-35.0) Mean Corpuscular Hemoglobin Concent 33.7% (32.0-37.0) Red Cell Distribution Width 14.0% (12.3-15.4) Platelet Count 300bil/L (150-400) Neutrophils (%) (Auto) 71.8% (40-74) Lymphocytes (%) (Auto) 19.3% (14-46) Monocytes (%) (Auto) 7.3% (4-12) Eosinophils (%) (Auto) 1.0% (0-5) Basophils (%) (Auto) 0.2% (0-3) Prothrombin Time 9.6sec (8.1-12.5) Prothromb Time International Ratio 0.90ratio Activated Partial Thromboplast Time 23.8sec (22.8-33.0) Sodium Level 139mEq/L (134-144) Potassium Level 4.4mEq/L (3.5-5.2) Chloride Level 102mEq/L (97-108) Carbon Dioxide Level 19mmol/L (18-29) Blood Urea Nitrogen 17mg/dL (8-27) Creatinine 0.85mg/dL (0.57-1.00) Estimat Glomerular Filtration Rate 94mL/min (>59) Glucose Level 103mg/dL (60-99) Calcium Level 10.0mg/dL (8.5-10.1) Total Bilirubin 0.3mg/dL (0.0-1.2) Aspartate Amino Transf (AST/SGOT) 18U/L (0-50) Alanine Aminotransferase (ALT/SGPT) 18U/L (0-32) Alkaline Phosphatase 100U/L (25-165) Troponin T < 0.010ug/L (0.0-0.011) Total Protein 6.9g/dL (6.4-8.4) Albumin 4.2g/dL (3.4-5.0) Hold Sanchez Top Tube Received (Received) Hemoglobin A1c 5.5% (4.8-5.6) Triglycerides Level 241mg/dL (0-149) Cholesterol Level 285mg/dL (100-199) LDL Cholesterol, Calculated 162.800mg/dL (0-99) VLDL Cholesterol 48.200mg/dL HDL Cholesterol 74mg/dL (>39) Cholesterol/HDL Ratio 3.85 (0.0-4.4) Urine Color Straw (YELLOW) Urine Appearance Hazy (CLEAR,HAZY) Urine pH 6.0 (5.0-8.0) Urine Specific [place] 1.005 (1.003-1.035) Urine Protein Negativemg/dL (NEG,TRACE) Urine Glucose (UA) Negativemg/dL (NEGATIVE) Urine Ketones Negativemg/dL (NEGATIVE) Urine Occult Blood Negative (NEGATIVE) Urine Nitrite Negative (NEGATIVE) Urine Bilirubin Negative (NEGATIVE) Urine Urobilinogen Normalmg/dL (NORMAL) Urine Leukocyte Esterase Negative (NEGATIVE) Urine RBC 0-2/hpf (0-2) Urine WBC 0-5/hpf (0-5) Urine Epithelial Cells Occasional/hpf (NONE-MOD) Urine Crystals None seen (NONE SEEN) Urine Bacteria Few/hpf (NONE-FEW) Urine Hyaline Casts None/lpf (NONE) Urine Granular Casts None seen (NONE SEEN) Urine Waxy Casts None seen (NONE SEEN) Urine Red Blood Cell Casts None seen (NONE SEEN) Urine White Blood Cell Casts None seen (NONE SEEN) Urine Mucus None seen (None Seen) Urine Trichomonas None seen (NONE SEEN) Urine Yeast None (NONE SEEN) Urinalysis Comment None Urine Culture Reflexed Not indicated Discharge Medications Discharge Medications Amlodipine (Amlodipine) 5 Mg Tablet 5 MG PO DAILY (Reported) Aspirin (Aspirin) 81 Mg Tablet 81 MG PO DAILY Prescribed by: CAMERON GOEL DO Atorvastatin (Lipitor) 80 Mg Tablet 80 MG PO DAILY Prescribed by: CAMERON GOEL DO Cholecalciferol (Vitamin D3) (Vitamin D3) 2,000 Unit Capsule 2,000 UNIT PO DAILY (Reported) Clopidogrel Bisulfate (Plavix) 75 Mg Tablet 75 MG PO DAILY Prescribed by: CAMERON GOEL DO Folic Acid (Folic Acid) 1 Mg Tablet 1 MG PO DAILY (Reported) Losartan Potassium (Losartan Potassium) 100 Mg Tablet 100 MG PO DAILY Prescribed by: NAFISA AVALOS MD [place]-3/Dha/Epa/Fish Oil (Fish Oil 1,000 mg Softgel) 1 Each Capsule 1 EACH PO DAILY (Reported) Followup Plan Follow-up plan 1. Pt to FU with PCP (Dr Ofelia James) in 1 week for BP check 2. As per Neurology, you should follow up next 2 weeks at most with vascular surgeon to discuss urgent endarterectomy for RT Carotid stenosis. Discharge Diet: No restrictions, Heart Healthy Discharge Activity: No restrictions Follow-up Provider: Yamel James DO Follow-up with PCP in: 1 week Time spent 45 minutes copies to: Yamel James Benjamin P DO Aug 26, 2016 18:29
[2016-08-26] MEDS ORDERED: ATOR80TA PO (18:32)
[2016-08-26] MEDS ORDERED: CLOP75TA3 PO (18:32)
[2016-08-26] MEDS ORDERED: ASPI-973 PO (18:32)
--- NOTE | 2016-08-26 18:34 | PCM.DIMED ---
Discharge Instructions Date of Service Aug 26, 2016 Dates of Hospitalization Aug 25, 2016 at 17:05 Discharge Diagnosis Discharge Diagnosis 1. Acute RT Parietal stroke 2. Hypertension 3. Rt Internal carotid stenosis Diet Discharge Diet: No restrictions, Heart Healthy Activity Discharge Activity: No restrictions Patient Instructions Patient Instructions Your blood pressure goal is less than 140/90. If readings are persistently above this while at rest, please contact you primary care physician to discuss further treatment options. Follow-up plan 1. Pt to FU with PCP (Dr Ofelia James) in 1 week for BP check 2. As per Neurology, you should follow up next 2 weeks at most with vascular surgeon to discuss urgent endarterectomy for RT Carotid stenosis. Follow-up Provider: Yamel James DO Follow-up with PCP in: 1 week Cameron Goel DO Aug 26, 2016 18:33
--- NOTE | 2016-08-26 18:52 | PCM.CHPMED ---
Subjective Date of Service: Aug 26, 2016 Provider requesting consult: Cameron Goel DO Primary Physician: Admitting Physician: Cameron Goel DO Primary Care Physician: Yamel James DO Attending Physician: Cameron Goel DO Chief Complaint: Chief Complaint: Severe headache associated with left sided weakness and numbness, and visual changes History of Present Illness: Neurology Consult Note Patient is a 75-year-old female with history of hypertension and past history of cervical cancer s/p partial hysterectomy who presented with sudden and severe headache associated with left sided weakness and numbness, and visual changes. She states they occurred suddenly, with onset of a severe occipital headache accompanied with seeing spots and flashing lights in her left eye. At the time, she noted some difficulty walking due to left leg numbness and weakness, and left arm weakness and coordination difficulties of her left hand. She states these symptoms lasted 3 hours and resolved when she presented to the ED. She denies any speech changes, facial droop, dizziness, fainting, chest pain , or shortness of breath. Brain CT was negative. MRI stroke protocol showed a 5 mm focus of acute ischemia in the right parietal lobe. Carotid Doppler showed right ICA stenosis of 50-69%. Left ICA was <50% stenosed. She states she has been in excellent physical health in the past, and has been on aspirin 81 mg daily and fish oil. She does note that she has been having episodes of palpitations intermittently, and these last for several seconds and resolve spontaneously. She also reports intermittent episodes of severe nausea and vomiting lasting up to 5 days each over the last 6 months. These occur once every 5 weeks. Today, she reports she is now at baseline and denies any symptoms. She states she wishes to go home as soon as possible. Review of Systems: Comprehensive review of systems conducted and was negative except for the pertinent positives listed above. PMH Past Medical History Hx of cervical cancer GERD Hypertension Surgical History breast reduction partial hysterectomy right hip replacement Allergies: Coded Allergies: No Known Allergies (Verified Allergy, Unknown, 08/25/16) Family History Family History Patient denies any significant family history, aside from cardiovascular disease. Social History Hx Alcohol Use: NoAlcoholic Drinks Per Day: Stopped drinking eight years ago, 2008H Substance Use: No Smoking Status: Never Smoker Exam Vital Signs Vital Sign - Last Date Time Temp Pulse Resp B/P Pulse Ox O2 Delivery O2 Flow Rate FiO2 08/26/16 16:55 36.6 76 16 153/81 95 Room Air Intake and Output 08/25/16 08/25/16 08/26/16 Cumulative From/Thru 15:00 23:00 07:00 08/25/16 12:08 - 08/26/16 06:10 Intake Total 600 ml 600 ml Output Total 400 ml 400 ml Balance 200 ml 200 ml Intake Oral 600 ml 600 ml Output Urine Total 400 ml 400 ml Additional Information: General: Alert, Oriented X3, Cooperative, No acute distress Head: Normocephalic, atraumatic. External ears normal. Eyes: PERRLA, EOMI. Anicteric sclerae. Mouth: Mouth normal, Mucous membranes moist/pink Neck: Neck supple with full range of motion. Chest& Lungs: Clear to auscultation bilaterally with no crackles, wheezes, or rhonchi. Cardiovascular: Regular rate/rhythm, Normal S1, Normal S2, No murmurs/rubs/ gallops Abdomen: Non-tender, Non-distended, No masses, Normoactive bowel tones, Soft Musculoskeletal: Normal range of motion Extremities: No cyanosis/clubbing/edema bilaterally Neuro: Normal speech. Strength 4/4 bilateral upper and lower extremities, Cranial Nerves 2-12 Intact, Sensation Intact, Finger-Nose and Heel-Faulkner normal, Reflexes Normal, Normal Gait Lab and Diagnostics Result Diagram: 08/25/16 1232 08/25/16 1232 Assessment & Plan Assessment Patient is a 75-year-old female with history of hypertension who presented with sudden and severe headache associated with left sided weakness and numbness, and visual changes. Admitted for right parietal lobe stroke. Right parietal lobe ischemic CVA Pt presents with left sided arm and leg weakness and numbness, along with left eye vision changes associated with a right parietal lobe ischemic stroke. She was on ASA at the time of the stroke, so she will need to be on at least Plavix for now. CT angio showed 80-90% stenosis of the origin of the right internal carotid artery. She should have this addressed by a vascular surgeon within the next two weeks, with stenting or surgery. Echocardiogram was normal. She was in sinus rhythm on telemetry during her stay here. She also has hyperlipidemia, and needs to be on maximal statin therapy. - Recommend increasing atorvastatin 10 mg to 80 mg qhs - Continue Aspirin and Plavix - Recommend blood pressure control, goal <140/90 - Recommend close follow up with vascular surgeon to address severe stenosis of the right ICA. Problems: Pain Evaluation: Adequate Pain Control GI Prophylaxis: Not indicated VTE Mechanical Devices: Intermittant Pneumatic CD Resuscitation Status: CPR: Attempt Resuscitation Leobardo Chavez Aug 26, 2016 18:52 Leobardo Chavez Aug 26, 2016 18:52
--- NOTE | 2016-08-26 18:57 | NUR ---
Discharge Nursing note: Patient was discharged to home at 1900. Patients IV was removed intact. Patients telemetry was discontinued . All of patients discharge information was reviewed with her and her questions were answered to her satisfaction. Patient was escorted to the hospital lobby by nursing staff member and she was driven to home by her .
== END 2016-08-26 18:54 | disposition home or self-care (01) ==
LOC: SED 12:02 → INTOOBSV 17:05 → OBSVTOIN 17:05 → MPC 17:05
PROVIDERS: ADMIT Family Medicine; ATTEND Family Medicine
DX: I63.9 Cerebral infarction, unspecified (principal); I65.21 Occlusion and stenosis of right carotid artery; I10 Essential (primary) hypertension; R51 Headache; R53.1 Weakness; K21.9 Gastro-esophageal reflux disease without esophagitis; Z79.82 Long term (current) use of aspirin; Z85.41 Personal history of malignant neoplasm of cervix uteri; Z90.710 Acquired absence of both cervix and uterus; Z96.641 Presence of right artificial hip joint
CPT/HCPCS: 36415; 70450; 70496; 70498; 70551; 80053; 80061; 81000; 83036; 84484; 85025; 85610; 85730; 92610; 93005; 93880; 97166; 99285; C8929; Q9967